=== PATIENT | female | born 1925 | race Caucasian/White ===

== ENCOUNTER 2016-02-26 06:47 | Emergency (ER) | payer OTHER ==
[~2016-02-26] VITALS: Ht 162.6 cm; Wt 65.8 kg
[~2016-02-26 06:47] MED LIST: CHOL20007 PO; GEMF600T3 PO; LETR2.5T PO; LISI2.5T47 PO; WARFARIN PO
[2016-02-26 08:17] LABS: Basophils # (auto) 0 uL; Basophils % (auto) 0.5 % (0.0-2.0); Eosinophils # (auto) 0.1 uL; Eosinophils % (auto) 2.7 % (0.0-7.0); Hematocrit 38.5 % (36.0-46.0); Hemoglobin 12.5 g/dL (12.2-16.2); Mean Corpuscular Hgb Conc. 32.6 g/dL (32.0-36.0); Mean Corpuscular Volume 98.2 fL (80.0-100.0); Mean Platelet Volume 9.9 fL (7.4-10.4); Monocytes # (auto) 0.6 uL; Monocytes % (auto) 10.5 % (0.0-12.0); Neutrophils # (auto) 3.7 uL; Neutrophils % (auto) 67.3 % (37.0-80.0); Platelet Count (auto) 232 10^3/uL (140-450); Red Cell Distribution Width 15.8 % (11.6-16.0); SUSPECT VIEW TRANSMISSION; White Blood Cell 5.5 10^3/uL (4.4-10.8)
[2016-02-26 08:38] LABS: Albumin 3.4 g/dL (3.4-5.0); Anion Gap 9 (5-15); Blood Urea Nitrogen 15 mg/dL (7-18); Calcium 8.9 mg/dL (8.5-10.1); Carbon Dioxide 28 mmol/L (21-32); Chloride 102 mmol/L (98-107); GFR African American 62 mL/min; GFR Non-African American 51 mL/min; Glucose 114 mg/dL (74-106); Magnesium 2.4 mg/dL (1.6-2.6); Potassium 3.7 mmol/L (3.5-5.1); Sodium 139 mmol/L (136-145)
[2016-02-26 08:46] LABS: Alkaline Phosphatase 114 U/L (45-117); Aspartate Aminotransferase 20 U/L (15-37); Bilirubin, Total 0.4 mg/dL (0.2-1.0); Salicylate < 1.7 mg/dL (2.8-20.0); Total Protein 7.1 g/dL (6.4-8.2)
[2016-02-26 08:49] LABS: Acetaminophen < 2.0 ug/mL (10-30)
[2016-02-26 09:01] LABS: Urine Bilirubin Negative (Negative); Urine Blood TRACE /uL (Negative); Urine Color Yellow (Yellow); Urine Glucose Normal (Normal); Urine Hyaline Cast FEW /lpf (0 - 2); Urine Ketone Negative (Negative); Urine Mucus FEW (None Seen); Urine Nitrite Negative (Negative); Urine RBC 2 /hpf (0 - 4); Urine Squamous Epithelial Cell FEW /hpf (<5); Urine Urobilinogen Normal (Negative); Urine pH 5.5 (5.0-8.0)
[2016-02-26] MEDS ORDERED: LORazepam 0.5 MG TAB PO ONE (12:00)
[2016-02-26 12:30] VITALS: BP 122/62
== END 2016-02-26 13:33 | disposition home or self-care (01) ==
LOC: ER 06:48
DX: F41.9 Anxiety disorder, unspecified (principal); J44.9 Chronic obstructive pulmonary disease, unspecified; E78.5 Hyperlipidemia, unspecified; I11.0 Hypertensive heart disease with heart failure; I50.40 Unspecified combined systolic (congestive) and diastolic (congestive) heart failure; Z85.9 Personal history of malignant neoplasm, unspecified
CPT/HCPCS: 36415; 71020; 80053; 80320; 80329; 81001; 83735; 84484; 85025; 93005; 99285; G0434

== ENCOUNTER 2016-02-29 09:32 | Emergency (ER) | payer OTHER ==
[~2016-02-29] VITALS: Ht 162.6 cm; Wt 52.2 kg
[2016-02-29 10:31] VITALS: BP 131/78
== END 2016-02-29 11:09 | disposition home or self-care (01) ==
LOC: ER 09:42
DX: F41.9 Anxiety disorder, unspecified (principal); F32.9 Major depressive disorder, single episode, unspecified; J44.9 Chronic obstructive pulmonary disease, unspecified; E78.5 Hyperlipidemia, unspecified; I11.0 Hypertensive heart disease with heart failure; I50.9 Heart failure, unspecified; Z79.899 Other long term (current) drug therapy; Z79.01 Long term (current) use of anticoagulants; Z88.6 Allergy status to analgesic agent; Z88.2 Allergy status to sulfonamides

== ENCOUNTER → 2016-03-05 | Outpatient (CLI) | payer OTHER ==
[2016-03-05 08:34] LABS: Albumin 3.7 g/dL (3.4-5.0); BUN/Creatinine Ratio 16.1; Bilirubin, Total 0.4 mg/dL (0.2-1.0); Calcium 9.5 mg/dL (8.5-10.1); Potassium 3.6 mmol/L (3.5-5.1)
[2016-03-05 08:41] LABS: Basophils # (auto) 0 uL; Basophils % (auto) 0.6 % (0.0-2.0); Eosinophils # (auto) 0.2 uL; Eosinophils % (auto) 2.4 % (0.0-7.0); Hematocrit 38.7 % (36.0-46.0); Hemoglobin 12.6 g/dL (12.2-16.2); Lymphocytes # (auto) 1.3 uL; Lymphocytes % (auto) 20.1 % (10.0-50.0); Mean Corpuscular Hemoglobin 31.7 pg (28.0-32.0); Mean Corpuscular Hgb Conc. 32.5 g/dL (32.0-36.0); Mean Corpuscular Volume 97.6 fL (80.0-100.0); Mean Platelet Volume 10.4 fL (7.4-10.4); Monocytes # (auto) 0.5 uL; Monocytes % (auto) 7.6 % (0.0-12.0); Neutrophils # (auto) 4.4 uL; Neutrophils % (auto) 69.3 % (37.0-80.0); Platelet Count (auto) 255 10^3/uL (140-450); Red Cell Distribution Width 15.4 % (11.6-16.0); White Blood Cell 6.4 10^3/uL (4.4-10.8)
== END | disposition home or self-care (01) ==
LOC: LAB 07:10
PROVIDERS: ATTEND Internal Medicine
DX: N18.3 Chronic kidney disease, stage 3 (moderate) (principal); E78.00 Pure hypercholesterolemia, unspecified; I10 Essential (primary) hypertension; Z00.00 Encounter for general adult medical examination without abnormal findings
CPT/HCPCS: 36415; 80053; 80061; 83615; 84443; 85025; 85049

== ENCOUNTER 2016-03-13 07:40 | Emergency (ER) | payer OTHER ==
[~2016-03-13] VITALS: Ht 162.6 cm; Wt 52.2 kg
[2016-03-13] MEDS ORDERED: SODIUM CHLORIDE 0.9% 1,000 ML IV ONE (08:20)
[2016-03-13] MEDS ORDERED: LORazepam 2MG/ML-1ML VIAL IV ONE (08:30)
[2016-03-13 08:46] LABS: Albumin 2.9 g/dL (3.4-5.0); BUN/Creatinine Ratio 19.8; Calcium 8.1 mg/dL (8.5-10.1); Potassium 3.2 mmol/L (3.5-5.1)
[2016-03-13 08:48] LABS: Bilirubin, Total 0.3 mg/dL (0.2-1.0)
[2016-03-13 09:03] LABS: Basophils # (auto) 0 uL; Basophils % (auto) 0.5 % (0.0-2.0); Eosinophils # (auto) 0 uL; Eosinophils % (auto) 0.4 % (0.0-7.0); Hematocrit 34.6 % (36.0-46.0); Hemoglobin 11.6 g/dL (12.2-16.2); Lymphocytes # (auto) 1.2 uL; Lymphocytes % (auto) 39.7 % (10.0-50.0); Mean Corpuscular Hgb Conc. 33.7 g/dL (32.0-36.0); Mean Corpuscular Volume 95.1 fL (80.0-100.0); Mean Platelet Volume 10.8 fL (7.4-10.4); Monocytes # (auto) 0.5 uL; Monocytes % (auto) 17.2 % (0.0-12.0); Neutrophils # (auto) 1.3 uL; Neutrophils % (auto) 42.2 % (37.0-80.0); Platelet Count (auto) 158 10^3/uL (140-450); Red Cell Distribution Width 14.9 % (11.6-16.0); SUSPECT VIEW TRANSMISSION
[2016-03-13 09:20] LABS: Platelet Estimate Adequate; RBC Morphology Normal
[2016-03-13 10:12] LABS: INR 1.61 (0.9-1.15); Prothrombin Time 16.6 sec (9.37-12.3)
[2016-03-13] MEDS ORDERED: POTASSIUM CHL 10% (20 MEQ/15ML) ORAL SOLN PO ONE (10:45)
[2016-03-13 11:24] LABS: Urine Bilirubin Negative (Negative); Urine Blood TRACE /uL (Negative); Urine Color Yellow (Yellow); Urine Glucose TRACE mg/dL (Normal); Urine Nitrite Negative (Negative); Urine RBC 2 /hpf (0 - 4); Urine Urobilinogen Normal (Negative); Urine pH 5.5 (5.0-8.0)
[2016-03-13 11:26] LABS: Urine Ketone 1+ (Negative)
[2016-03-13 11:50] VITALS: BP 136/62
== END 2016-03-13 12:25 | disposition home or self-care (01) ==
LOC: EDUNIT# 07:40 → ER 07:44
DX: F41.9 Anxiety disorder, unspecified (principal); E87.6 Hypokalemia; E44.1 Mild protein-calorie malnutrition; Z68.1 Body mass index [BMI] 19.9 or less, adult; J44.9 Chronic obstructive pulmonary disease, unspecified; I11.0 Hypertensive heart disease with heart failure; I50.9 Heart failure, unspecified; R51 Headache; E78.5 Hyperlipidemia, unspecified; Z86.711 Personal history of pulmonary embolism; Z87.440 Personal history of urinary (tract) infections; Z85.9 Personal history of malignant neoplasm, unspecified
CPT/HCPCS: 36415; 70450; 71010; 80053; 81001; 84484; 85025; 85049; 85610; 93005; 94761; 96360; 99285; J7030

== ENCOUNTER 2016-03-17 13:23 | Inpatient (IN) | payer OTHER ==
[~2016-03-17] VITALS: Ht 162.6 cm; Wt 53.2 kg
[2016-03-17] MEDS ORDERED: SODIUM CHLORIDE 0.9% 1,000 ML IVB ONE (13:53)
[2016-03-17 14:57] LABS: Hematocrit 37.7 % (36.0-46.0); Hemoglobin 12.2 g/dL (12.2-16.2); Mean Corpuscular Hemoglobin 31.1 pg (28.0-32.0); Mean Corpuscular Hgb Conc. 32.3 g/dL (32.0-36.0); Mean Corpuscular Volume 96.1 fL (80.0-100.0); Mean Platelet Volume 10.9 fL (7.4-10.4); Platelet Count (auto) 175 10^3/uL (140-450); Red Cell Distribution Width 15.3 % (11.6-16.0); SUSPECT VIEW TRANSMISSION
[2016-03-17 14:58] LABS: Albumin 3.3 g/dL (3.4-5.0); BUN/Creatinine Ratio 7.5; Calcium 8.7 mg/dL (8.5-10.1); Magnesium 2.1 mg/dL (1.6-2.6)
[2016-03-17 15:08] LABS: Partial Thromboplastin Time 43.2 sec (22.64-33.71)
[2016-03-17 15:09] LABS: Bilirubin, Total 0.5 mg/dL (0.2-1.0); Total Protein 6.3 g/dL (6.4-8.2)
[2016-03-17 15:16] LABS: Urine Bilirubin Negative (Negative); Urine Blood Negative /uL (Negative); Urine Color Yellow (Yellow); Urine Glucose Normal (Normal); Urine Ketone Negative (Negative); Urine Nitrite Negative (Negative); Urine RBC 1 /hpf (0 - 4); Urine Urobilinogen Normal (Negative)
[2016-03-17 15:28] LABS: Metamyelocytes % 0; Myelocytes % 0; Promyelocytes % 0; Reactive Lymphocytes 0
[2016-03-17] MEDS ORDERED: cefTRIAXone 1GM/50ML D5W 50 ML IV ONE (15:45)
[2016-03-17] MEDS ORDERED: POTASSIUM CHL 20 Meq TABLET PO ONE (15:45)
[2016-03-17 16:23] LABS: Prothrombin Time 50.2 sec (9.37-12.3)
[2016-03-17 16:25] LABS: INR 4.87 (0.9-1.15)
[2016-03-17 16:56] LABS: Anisocytosis Slight; Platelet Estimate Adequate
[2016-03-17 16:57] LABS: Ovalocytes FEW
[2016-03-17] MEDS: PHYTONADIONE (VIT K)10 MG/ML 1ML VIAL SUBCUT ONE ×2 (17:11→17:21)
[2016-03-17] MEDS ORDERED: ACETAMINOPHEN 500 MG TAB PO PRN (17:15)
[2016-03-17] MEDS ORDERED: ALBUTEROL SULF 2.5 MG/0.5ML(0.5%) NEB SOLN NEB PRN (17:15)
[2016-03-17] MEDS ORDERED: OSELTAMIVIR 75 MG CAP PO ONE (17:15)
[2016-03-17] MEDS ORDERED: LORazepam 0.5 MG TAB PO PRN (17:15)
[2016-03-17] MEDS ORDERED: TEMAZEPAM 15 MG CAP PO PRN (17:15)
[2016-03-17] MEDS ORDERED: SOD CHL 0.9%/ KCL 20MEQ 1,000 ML IV ONE (17:15)
[2016-03-17] MEDS ORDERED: OSELTAMIVIR 30 MG CAP PO ONE (17:15)
[2016-03-17] MEDS ORDERED: HYDROcodone-ACET 5/325MG TAB PO PRN (17:15)
[2016-03-17] MEDS ORDERED: MORPHINE SULF INJ 2 MG/ML SYRINGE 1ML IV PRN ×2 (17:15)
[2016-03-17] MEDS ORDERED: PROMETHAZINE HCL 25 MG/ML 1ML IV PRN (17:15)
[2016-03-17] MEDS ORDERED: LACTULOSE 20Gm/30ML SOLN PO PRN (17:15)
[2016-03-17] MEDS ORDERED: NITROGLYCERIN 0.4 MG SL TAB SL PRN (17:15)
[2016-03-17] MEDS ORDERED: CHOLECALCIFEROL (VITD3) 1,000 UNIT TAB PO SCH (17:30)
[2016-03-17] MEDS ORDERED: LEVOFLOXACIN 500MG 100 ML IV ONE (17:30)
[2016-03-17] MEDS ORDERED: PANTOPRAZOLE 40 MG TAB PO ONE (17:30)
[2016-03-17] MEDS ORDERED: GEMFIBROZIL 600 MG TAB PO ONE (17:30)
[2016-03-17] MEDS ORDERED: CHOLECALCIFEROL (VITD3) 1,000 UNIT TAB PO ONE (17:45)
[2016-03-17] MEDS: IPRATROPIUM BROM 0.5 MG/2.5ML INH SOL NEB SCH ×2 (17:46→23:52)
[2016-03-17] MEDS: ALBUTEROL SULF 2.5 MG/0.5ML(0.5%) NEB SOLN NEB SCH ×2 (17:46→23:52)
[2016-03-17] MEDS: LISINOPRIL 5 MG TAB PO SCH (18:40)
[2016-03-17 19:15] VITALS: BP 153/69
[2016-03-17] MEDS ORDERED: WARF2.5T PO (20:16)
[2016-03-17 21:35] VITALS: BP 153/69
[2016-03-17 22:00] VITALS: BP 153/69
[2016-03-17] MEDS ORDERED: OSELTAMIVIR 30 MG CAP PO SCH (22:00)
[2016-03-17] MEDS ORDERED: OSELTAMIVIR 75 MG CAP PO SCH (22:00)
[2016-03-18] VITALS (7 sets, daily range): BP systolic 120–155; BP diastolic 61–79
[2016-03-18 06:52] LABS: Partial Thromboplastin Time 45.3 sec (22.64-33.71)
[2016-03-18 06:55] LABS: Prothrombin Time 67.4 sec (9.37-12.3)
[2016-03-18 07:05] LABS: INR 6.54 (0.9-1.15)
[2016-03-18] MEDS: IPRATROPIUM BROM 0.5 MG/2.5ML INH SOL NEB SCH ×2 (07:44→19:12)
[2016-03-18] MEDS: ALBUTEROL SULF 2.5 MG/0.5ML(0.5%) NEB SOLN NEB SCH ×2 (07:45→19:12)
[2016-03-18] MEDS: CHOLECALCIFEROL (VITD3) 1,000 UNIT TAB PO SCH (09:42)
[2016-03-18] MEDS: GEMFIBROZIL 600 MG TAB PO SCH (09:42)
[2016-03-18] MEDS: PANTOPRAZOLE 40 MG TAB PO SCH (09:43)
[2016-03-18] MEDS: LISINOPRIL 5 MG TAB PO SCH (09:43)
[2016-03-18] MEDS: LEVOFLOXACIN 250MG 50 ML IV SCH (09:43)
[2016-03-18] MEDS: LETROZOLE 2.5MG PO SCH (09:44)
[2016-03-18] MEDS ORDERED: DONE5TAB28 PO (09:48)
[2016-03-18] MEDS ORDERED: ALPR0.5T PO (09:48)
[2016-03-18] MEDS ORDERED: GEMF600T3 PO (09:48)
[2016-03-18] MEDS ORDERED: ESCI10TA53 PO (09:48)
[2016-03-18] MEDS ORDERED: LETROZOLE PO SCH (10:00)
[2016-03-18] MEDS ORDERED: LEVOFLOXACIN 500MG 100 ML IV SCH (10:00)
[2016-03-18] MEDS ORDERED: PHYTONADIONE(VIT K) 5 MG TAB PO ONE (10:15)
[2016-03-18] MEDS ORDERED: PHYTONADIONE (VIT K)10 MG/ML 1ML VIAL IM ONE (10:15)
[2016-03-19] MEDS: ALBUTEROL SULF 2.5 MG/0.5ML(0.5%) NEB SOLN NEB SCH ×2 (00:34→06:40)
[2016-03-19] MEDS: IPRATROPIUM BROM 0.5 MG/2.5ML INH SOL NEB SCH ×2 (00:34→06:40)
[2016-03-19 05:00] VITALS: BP 151/75
[2016-03-19 06:37] LABS: Hematocrit 34.2 % (36.0-46.0); Mean Corpuscular Hgb Conc. 32.3 g/dL (32.0-36.0); Mean Platelet Volume 11.4 fL (7.4-10.4); Platelet Count (auto) 166 10^3/uL (140-450); Red Cell Distribution Width 15.4 % (11.6-16.0); SUSPECT VIEW TRANSMISSION; White Blood Cell 3.7 10^3/uL (4.4-10.8)
[2016-03-19 06:49] LABS: Partial Thromboplastin Time 30.6 sec (22.64-33.71)
[2016-03-19 06:50] LABS: Metamyelocytes % 0; Myelocytes % 0; Promyelocytes % 0; Reactive Lymphocytes 0
[2016-03-19 06:51] LABS: Potassium 3.4 mmol/L (3.5-5.1)
[2016-03-19 06:55] LABS: INR 1.73 (0.9-1.15); Prothrombin Time 17.8 sec (9.37-12.3)
[2016-03-19 06:59] LABS: BUN/Creatinine Ratio 9.2; Calcium 8.7 mg/dL (8.5-10.1)
[2016-03-19 07:26] LABS: Large Platelets FEW; Ovalocytes FEW; Platelet Estimate Adequa
[2016-03-19 09:51] VITALS: BP 153/72
[2016-03-19] MEDS: LEVOFLOXACIN 250MG 50 ML IV SCH (09:52)
[2016-03-19] MEDS: CHOLECALCIFEROL (VITD3) 1,000 UNIT TAB PO SCH (09:52)
[2016-03-19] MEDS: GEMFIBROZIL 600 MG TAB PO SCH (09:52)
[2016-03-19] MEDS: LETROZOLE 2.5MG PO SCH (09:52)
[2016-03-19] MEDS: LISINOPRIL 5 MG TAB PO SCH (09:53)
[2016-03-19] MEDS: PANTOPRAZOLE 40 MG TAB PO SCH (09:53)
[2016-03-19] MEDS ORDERED: POTASSIUM CHL 20 Meq TABLET PO ONE (10:00)
[2016-03-19 10:31] VITALS: BP 153/72
== END 2016-03-19 11:15 | disposition home or self-care (01) | DRG 194 ==
LOC: EDBD 13:23 → ER 13:27 → TELE 13:28 → TELE-WESTW 19:35
PROVIDERS: ADMIT Internal Medicine; ATTEND Internal Medicine
DX: J18.9 Pneumonia, unspecified organism (principal); E46 Unspecified protein-calorie malnutrition; J44.0 Chronic obstructive pulmonary disease with (acute) lower respiratory infection; K72.90 Hepatic failure, unspecified without coma; J44.9 Chronic obstructive pulmonary disease, unspecified; D72.819 Decreased white blood cell count, unspecified; I11.0 Hypertensive heart disease with heart failure; T45.515A Adverse effect of anticoagulants, initial encounter; E87.6 Hypokalemia; I50.9 Heart failure, unspecified; E78.5 Hyperlipidemia, unspecified; Z86.711 Personal history of pulmonary embolism; Z86.718 Personal history of other venous thrombosis and embolism; Z87.440 Personal history of urinary (tract) infections; Z85.3 Personal history of malignant neoplasm of breast; Z90.89 Acquired absence of other organs; Z90.49 Acquired absence of other specified parts of digestive tract; Z90.710 Acquired absence of both cervix and uterus; Z90.11 Acquired absence of right breast and nipple; Z83.3 Family history of diabetes mellitus; Z80.9 Family history of malignant neoplasm, unspecified; Z80.1 Family history of malignant neoplasm of trachea, bronchus and lung; Z82.5 Family history of asthma and other chronic lower respiratory diseases; Z82.49 Family history of ischemic heart disease and other diseases of the circulatory system; Z88.6 Allergy status to analgesic agent; Z88.5 Allergy status to narcotic agent; Z88.2 Allergy status to sulfonamides; Z88.7 Allergy status to serum and vaccine; Z79.899 Other long term (current) drug therapy; Z68.20 Body mass index [BMI] 20.0-20.9, adult; Z90.10 Acquired absence of unspecified breast and nipple; Z86.2 Personal history of diseases of the blood and blood-forming organs and certain disorders involving the immune mechanism; Z88.8 Allergy status to other drugs, medicaments and biological substances; Y92.89 Other specified places as the place of occurrence of the external cause
CPT/HCPCS: 36415; 71010; 80048; 80053; 81001; 82270; 83605; 83735; 84484; 85007; 85027; 85610; 85730; 87040; 87081; 87086; 87400; 93005; 94640; 94761; 96361; 96365; G9035; J0696; J1956; J3430

== ENCOUNTER → 2016-03-21 | Outpatient (CLI) | payer OTHER ==
[~2016-03-21] MED LIST changes: +ALPR0.5T PO; -CHOL20007 PO; +DONE5TAB28 PO; +ESCI10TA53 PO; +WARF2.5T PO; -WARFARIN PO
[2016-03-21 11:17] LABS: Basophils # (auto) 0 uL; Basophils % (auto) 0.5 % (0.0-2.0); Eosinophils # (auto) 0 uL; Eosinophils % (auto) 0.5 % (0.0-7.0); Hematocrit 37.6 % (36.0-46.0); Hemoglobin 11.8 g/dL (12.2-16.2); Lymphocytes # (auto) 0.9 uL; Lymphocytes % (auto) 14.8 % (10.0-50.0); Mean Corpuscular Hemoglobin 30.8 pg (28.0-32.0); Mean Corpuscular Hgb Conc. 31.4 g/dL (32.0-36.0); Mean Corpuscular Volume 98.1 fL (80.0-100.0); Mean Platelet Volume 10.9 fL (7.4-10.4); Monocytes # (auto) 0.8 uL; Monocytes % (auto) 13.1 % (0.0-12.0); Neutrophils # (auto) 4.5 uL; Neutrophils % (auto) 71.1 % (37.0-80.0); Platelet Count (auto) 226 10^3/uL (140-450); Red Cell Distribution Width 15.8 % (11.6-16.0); SUSPECT VIEW TRANSMISSION; White Blood Cell 6.3 10^3/uL (4.4-10.8)
[2016-03-21 11:44] LABS: Vitamin B12 562 pg/mL (211-911)
[2016-03-21 12:27] LABS: Temperature: 21.7 C (20.0-25.0)
[2016-03-21 14:13] LABS: Potassium 3.8 mmol/L (3.5-5.1)
[2016-03-21 14:36] LABS: Albumin 3.4 g/dL (3.4-5.0); BUN/Creatinine Ratio 8.1
[2016-03-21 14:46] LABS: Bilirubin, Total 1.1 mg/dL (0.2-1.0); Total Protein 6.6 g/dL (6.4-8.2)
[2016-03-21 15:44] LABS: Large Platelets FEW; Platelet Estimate Adequate
[2016-03-21 15:45] LABS: Ovalocytes FEW
== END | disposition home or self-care (01) ==
LOC: LAB 10:23
PROVIDERS: ATTEND Internal Medicine
DX: E87.6 Hypokalemia (principal); F03.90 Unspecified dementia, unspecified severity, without behavioral disturbance, psychotic disturbance, mood disturbance, and anxiety
CPT/HCPCS: 36415; 80053; 82607; 82746; 83540; 85025

== ENCOUNTER → 2016-05-04 | Outpatient (CLI) | payer OTHER | END | disposition home or self-care (01) | LOC: LAB 09:06 | PROVIDERS: ATTEND Internal Medicine | DX: R93.5 Abnormal findings on diagnostic imaging of other abdominal regions, including retroperitoneum (principal); C50.119 Malignant neoplasm of central portion of unspecified female breast | CPT/HCPCS: 36415; 82565; 84520 ==

== ENCOUNTER → 2016-06-08 | Outpatient (CLI) | payer OTHER ==
[2016-06-08 13:13] LABS: Albumin 3.7 g/dL (3.4-5.0); Bilirubin, Total 0.8 mg/dL (0.2-1.0); Calcium 9.5 mg/dL (8.5-10.1); Potassium 3.7 mmol/L (3.5-5.1); Total Protein 7.1 g/dL (6.4-8.2)
[2016-06-08 13:25] LABS: Basophils # (auto) 0 uL; Basophils % (auto) 0.6 % (0.0-2.0); Eosinophils # (auto) 0.1 uL; Eosinophils % (auto) 0.6 % (0.0-7.0); Hematocrit 37.9 % (36.0-46.0); Hemoglobin 12.4 g/dL (12.2-16.2); Lymphocytes # (auto) 1.4 uL; Lymphocytes % (auto) 16.2 % (10.0-50.0); Mean Corpuscular Hemoglobin 32.9 pg (28.0-32.0); Mean Corpuscular Hgb Conc. 32.8 g/dL (32.0-36.0); Mean Corpuscular Volume 100.2 fL (80.0-100.0); Mean Platelet Volume 10.8 fL (7.4-10.4); Monocytes # (auto) 0.7 uL; Monocytes % (auto) 8.2 % (0.0-12.0); Neutrophils # (auto) 6.3 uL; Neutrophils % (auto) 74.4 % (37.0-80.0); Platelet Count (auto) 225 10^3/uL (140-450); SUSPECT VIEW TRANSMISSION; White Blood Cell 8.4 10^3/uL (4.4-10.8)
[2016-06-08 15:01] LABS: Macrocytosis Slight; Ovalocytes FEW; Platelet Estimate Adequate
== END | disposition home or self-care (01) ==
LOC: LAB 12:26
PROVIDERS: ATTEND Internal Medicine
DX: R35.1 Nocturia (principal); I10 Essential (primary) hypertension
CPT/HCPCS: 36415; 80053; 85025

== ENCOUNTER → 2016-07-10 | Outpatient (CLI) | payer OTHER | END | disposition home or self-care (01) | LOC: LAB 10:02 | PROVIDERS: ATTEND Internal Medicine | DX: R35.1 Nocturia (principal); N39.0 Urinary tract infection, site not specified | CPT/HCPCS: 87086 ==

== ENCOUNTER → 2016-08-16 | Outpatient (CLI) | payer OTHER ==
[2016-08-16 10:28] LABS: Basophils # (auto) 0 uL; Basophils % (auto) 0.5 % (0.0-2.0); CONDITION Y; Eosinophils # (auto) 0.1 uL; Eosinophils % (auto) 2.3 % (0.0-7.0); Hematocrit 36.9 % (36.0-46.0); Hemoglobin 12.4 g/dL (12.2-16.2); Lymphocytes # (auto) 1.4 uL; Lymphocytes % (auto) 23.6 % (10.0-50.0); Mean Corpuscular Hemoglobin 33.2 pg (28.0-32.0); Mean Corpuscular Hgb Conc. 33.5 g/dL (32.0-36.0); Mean Corpuscular Volume 98.8 fL (80.0-100.0); Mean Platelet Volume 11.3 fL (7.4-10.4); Monocytes # (auto) 0.5 uL; Monocytes % (auto) 8.9 % (0.0-12.0); Neutrophils # (auto) 3.8 uL; Neutrophils % (auto) 64.7 % (37.0-80.0); Platelet Count (auto) 208 10^3/uL (140-450); Red Cell Distribution Width 14.9 % (11.6-16.0); SUSPECT SEE PRINTOUT; White Blood Cell 5.9 10^3/uL (4.4-10.8)
[2016-08-16 11:03] LABS: Albumin 3.6 g/dL (3.4-5.0); BUN/Creatinine Ratio 22.5; Bilirubin, Total 0.7 mg/dL (0.2-1.0); Calcium 8.7 mg/dL (8.5-10.1); Potassium 3.7 mmol/L (3.5-5.1); Total Protein 6.4 g/dL (6.4-8.2)
== END | disposition home or self-care (01) ==
LOC: LAB 08:37
PROVIDERS: ATTEND Internal Medicine
DX: C50.911 Malignant neoplasm of unspecified site of right female breast (principal)
CPT/HCPCS: 36415; 80053; 83615; 85025

== ENCOUNTER 2016-10-01 14:47 | Inpatient (IN) | payer OTHER ==
[~2016-10-01] VITALS: Ht 162.6 cm; Wt 53.3 kg
[2016-10-01] MEDS ORDERED: SODIUM CHLORIDE 0.9% 1,000 ML IV ONE (15:30)
[2016-10-01] MEDS ORDERED: MORPHINE SULFATE 4 MG/ML SYRG IV ONE (15:30)
[2016-10-01] MEDS ORDERED: ONDANSETRON HCL 4 MG/2 ML VIAL IV ONE (15:30)
[2016-10-01 15:47] LABS: Basophils # (auto) 0 uL; Basophils % (auto) 0.5 % (0.0-2.0); CONDITION Y; Eosinophils # (auto) 0 uL; Eosinophils % (auto) 0.5 % (0.0-7.0); Hematocrit 34.8 % (36.0-46.0); Hemoglobin 11.5 g/dL (12.2-16.2); Lymphocytes # (auto) 0.9 uL; Mean Corpuscular Hgb Conc. 33.1 g/dL (32.0-36.0); Mean Corpuscular Volume 99.8 fL (80.0-100.0); Mean Platelet Volume 10.4 fL (7.4-10.4); Monocytes # (auto) 0.5 uL; Monocytes % (auto) 5.9 % (0.0-12.0); Neutrophils # (auto) 6.6 uL; Neutrophils % (auto) 82.1 % (37.0-80.0); Platelet Count (auto) 197 10^3/uL (140-450); Red Cell Distribution Width 15.6 % (11.6-16.0); White Blood Cell 8.1 10^3/uL (4.4-10.8)
[2016-10-01 16:10] LABS: Albumin 3.3 g/dL (3.4-5.0); Anion Gap 6 (5-15); Aspartate Aminotransferase 14 U/L (15-37); BUN/Creatinine Ratio 18.1; Blood Urea Nitrogen 19 mg/dL (7-18); Calcium 8.6 mg/dL (8.5-10.1); Carbon Dioxide 29 mmol/L (21-32); Chloride 106 mmol/L (98-107); GFR African American 63 mL/min; GFR Non-African American 52 mL/min; Glucose 121 mg/dL (74-106); Potassium 3.7 mmol/L (3.5-5.1); Sodium 141 mmol/L (136-145)
[2016-10-01 16:15] LABS: Alkaline Phosphatase 54 U/L (45-117); Bilirubin, Total 0.6 mg/dL (0.2-1.0)
[2016-10-01 16:34] LABS: INR 2.51 (0.9-1.15); Partial Thromboplastin Time 32.7 sec (22.64-33.71); Prothrombin Time 27.6 sec (9.37-12.3)
[2016-10-01] MEDS ORDERED: PHYTONADIONE (VIT K)10 MG/ML 1ML VIAL SUBCUT ONE (17:00)
[2016-10-01] MEDS ORDERED: TEMAZEPAM 15 MG CAP PO PRN (17:00)
[2016-10-01] MEDS ORDERED: ALPRAZolam 0.5 MG TAB PO PRN (17:00)
[2016-10-01] MEDS ORDERED: cloNIDine HCL 0.1 MG TAB PO PRN (17:00)
[2016-10-01] MEDS ORDERED: NITROGLYCERIN 0.4 MG SL TAB SL PRN (17:00)
[2016-10-01] MEDS ORDERED: MORPHINE SULF INJ 2 MG/ML SYRINGE 1ML IV PRN (17:00)
[2016-10-01] MEDS: BOOST PLUS 8 ounce PO SCH (18:00)
[2016-10-01 18:15] LABS: Urine Bilirubin Negative (Negative); Urine Color Yellow (Yellow); Urine Glucose Normal (Normal); Urine Ketone Negative (Negative); Urine RBC 27 /hpf (0 - 4); Urine Squamous Epithelial Cell FEW /hpf (<5); Urine Urobilinogen Normal (Negative)
[2016-10-01] MEDS ORDERED: LISINOPRIL 5 MG TAB PO ONE (18:15)
[2016-10-01 18:22] LABS: Urine Blood 1+ /uL (Negative); Urine Nitrite POSITIVE (Negative)
[2016-10-01] MEDS: ZINC SULFATE 220 MG CAP PO SCH (18:24)
[2016-10-01] MEDS: MULTIPLE VITAMIN TAB PO SCH (18:25)
[2016-10-01 20:25] VITALS: BP 145/55
[2016-10-01] MEDS: GEMFIBROZIL 600 MG TAB PO SCH ×2 (21:19→22:00)
[2016-10-01] MEDS: ASCORBIC ACID 500 MG TAB PO SCH ×2 (21:19→22:00)
[2016-10-01] MEDS: DONEPEZIL HYDROCHLORIDE 5 MG TAB PO SCH ×2 (21:19→22:00)
[2016-10-01] MEDS: MORPHINE SULF INJ 2 MG/ML SYRINGE 1ML IV PRN (21:20)
[2016-10-01] MEDS: SODIUM CHLOR 0.9% PF (SALINE LOCK) 10ML VIAL IV SCH (21:30)
[2016-10-01 22:00] VITALS: BP 149/65
[2016-10-01] MEDS: FAMOTIDINE 20 MG TAB PO SCH (22:00)
[2016-10-01 23:36] VITALS: BP 145/55
[2016-10-02 05:00] VITALS: BP 106/62
[2016-10-02] MEDS: SODIUM CHLOR 0.9% PF (SALINE LOCK) 10ML VIAL IV SCH ×3 (05:50→21:20)
[2016-10-02 05:58] LABS: Basophils # (auto) 0 uL; Basophils % (auto) 0.3 % (0.0-2.0); CONDITION Y; Eosinophils # (auto) 0.1 uL; Eosinophils % (auto) 0.7 % (0.0-7.0); Hematocrit 35.2 % (36.0-46.0); Hemoglobin 11.6 g/dL (12.2-16.2); Lymphocytes # (auto) 0.8 uL; Lymphocytes % (auto) 9.3 % (10.0-50.0); Mean Corpuscular Hemoglobin 33.3 pg (28.0-32.0); Mean Corpuscular Hgb Conc. 33.1 g/dL (32.0-36.0); Mean Corpuscular Volume 100.6 fL (80.0-100.0); Mean Platelet Volume 10.8 fL (7.4-10.4); Monocytes # (auto) 0.7 uL; Monocytes % (auto) 8.2 % (0.0-12.0); Neutrophils # (auto) 7.4 uL; Neutrophils % (auto) 81.5 % (37.0-80.0); Platelet Count (auto) 177 10^3/uL (140-450); Red Cell Distribution Width 15.6 % (11.6-16.0); SUSPECT SEE PRINTOUT; White Blood Cell 9.1 10^3/uL (4.4-10.8)
[2016-10-02 06:03] LABS: INR 2.26 (0.9-1.15); Prothrombin Time 24.8 sec (9.37-12.3)
[2016-10-02 06:07] LABS: Potassium 4.5 mmol/L (3.5-5.1)
[2016-10-02 06:12] LABS: BUN/Creatinine Ratio 19.5; Calcium 8.5 mg/dL (8.5-10.1); Total Protein 5.8 g/dL (6.4-8.2)
[2016-10-02] MEDS: BOOST PLUS 8 ounce PO SCH ×3 (08:00→18:09)
[2016-10-02 09:07] VITALS: BP 112/50
[2016-10-02] MEDS: GEMFIBROZIL 600 MG TAB PO SCH ×2 (09:29→21:21)
[2016-10-02] MEDS: CITALOPRAM HYDROBR 20 MG TAB PO SCH (09:29)
[2016-10-02] MEDS: CHOLECALCIFEROL (VITD3) 1,000 UNIT TAB PO SCH (09:30)
[2016-10-02] MEDS: ASCORBIC ACID 500 MG TAB PO SCH ×2 (09:30→21:21)
[2016-10-02] MEDS: MULTIPLE VITAMIN TAB PO SCH (09:30)
[2016-10-02] MEDS: FAMOTIDINE 20 MG TAB PO SCH (09:31)
[2016-10-02] MEDS: MORPHINE SULF INJ 2 MG/ML SYRINGE 1ML IV PRN (09:31)
[2016-10-02] MEDS: ZINC SULFATE 220 MG CAP PO SCH (09:31)
[2016-10-02] MEDS: LISINOPRIL 5 MG TAB PO SCH (09:33)
[2016-10-02] MEDS: HYDROcodone-ACET 5/325MG TAB PO PRN ×2 (11:11→18:16)
[2016-10-02 13:00] VITALS: BP 113/63
[2016-10-02] MEDS ORDERED: CLINDAMYCIN 600MG IV 50 ML IV ONE (15:45)
[2016-10-02 17:00] VITALS: BP 95/43
[2016-10-02 20:00] VITALS: BP 107/55
[2016-10-02] MEDS: DONEPEZIL HYDROCHLORIDE 5 MG TAB PO SCH (21:21)
[2016-10-02 22:04] VITALS: BP 107/45
[2016-10-03 05:24] VITALS: BP 119/44
[2016-10-03] MEDS: SODIUM CHLOR 0.9% PF (SALINE LOCK) 10ML VIAL IV SCH ×3 (06:16→21:55)
[2016-10-03] MEDS: BOOST PLUS 8 ounce PO SCH ×3 (08:00→18:33)
[2016-10-03 08:48] VITALS: BP 97/42
[2016-10-03] MEDS: GEMFIBROZIL 600 MG TAB PO SCH ×2 (09:57→21:56)
[2016-10-03] MEDS: ASCORBIC ACID 500 MG TAB PO SCH ×2 (09:57→21:58)
[2016-10-03] MEDS: CHOLECALCIFEROL (VITD3) 1,000 UNIT TAB PO SCH (09:57)
[2016-10-03] MEDS: CITALOPRAM HYDROBR 20 MG TAB PO SCH (09:57)
[2016-10-03] MEDS: ZINC SULFATE 220 MG CAP PO SCH (09:58)
[2016-10-03] MEDS: FAMOTIDINE 20 MG TAB PO SCH (09:58)
[2016-10-03] MEDS: MULTIPLE VITAMIN TAB PO SCH (09:58)
[2016-10-03] MEDS: LISINOPRIL 5 MG TAB PO SCH (10:00)
[2016-10-03 13:06] VITALS: BP_SYST 100; BP_SYST 125; BP_DIAS 43; BP_DIAS 46
[2016-10-03 16:55] VITALS: BP 139/48
[2016-10-03] MEDS ORDERED: PHYTONADIONE (VIT K)10 MG/ML 1ML VIAL SUBCUT ONE (17:00)
[2016-10-03 19:15] LABS: INR 1.02 (0.9-1.15); Prothrombin Time 11.1 sec (9.37-12.3)
[2016-10-03] MEDS: MORPHINE SULF INJ 2 MG/ML SYRINGE 1ML IV PRN (21:57)
[2016-10-03] MEDS: DONEPEZIL HYDROCHLORIDE 5 MG TAB PO SCH (21:57)
[2016-10-03 22:00] VITALS: BP 131/57
[2016-10-04 05:00] VITALS: BP 147/71
[2016-10-04] MEDS: SODIUM CHLOR 0.9% PF (SALINE LOCK) 10ML VIAL IV SCH ×3 (05:00→21:35)
[2016-10-04 05:55] LABS: Basophils # (auto) 0 uL; Basophils % (auto) 0.1 % (0.0-2.0); CONDITION Y; Eosinophils # (auto) 0.1 uL; Eosinophils % (auto) 0.6 % (0.0-7.0); Hematocrit 34.6 % (36.0-46.0); Hemoglobin 11.5 g/dL (12.2-16.2); Lymphocytes # (auto) 0.9 uL; Lymphocytes % (auto) 8.5 % (10.0-50.0); Mean Corpuscular Hemoglobin 33.3 pg (28.0-32.0); Mean Corpuscular Hgb Conc. 33.3 g/dL (32.0-36.0); Mean Platelet Volume 10.7 fL (7.4-10.4); Monocytes # (auto) 0.9 uL; Monocytes % (auto) 8.8 % (0.0-12.0); Neutrophils # (auto) 8.5 uL; Platelet Count (auto) 143 10^3/uL (140-450); Red Cell Distribution Width 14.9 % (11.6-16.0); SUSPECT SEE PRINTOUT; White Blood Cell 10.3 10^3/uL (4.4-10.8)
[2016-10-04 06:06] LABS: BUN/Creatinine Ratio 18.4; Calcium 8.3 mg/dL (8.5-10.1); Potassium 4.2 mmol/L (3.5-5.1)
[2016-10-04 06:07] LABS: INR 0.93 (0.9-1.15); Partial Thromboplastin Time 30.8 sec (22.64-33.71); Prothrombin Time 10.1 sec (9.37-12.3)
[2016-10-04] MEDS: BOOST PLUS 8 ounce PO SCH ×3 (08:00→18:00)
[2016-10-04] MEDS ORDERED: LIDOCAINE 1% HCL (LOCAL ANESTH.) INJ 20ML MDV ONE (08:22)
[2016-10-04] MEDS ORDERED: TETRACAINE 1% INJ 2 ML VIAL IJ ONE (08:22)
[2016-10-04] MEDS ORDERED: SUCCINYLCHOLINE CHLORIDE 20 MG/ML 10ML VIAL IV ONE (08:22)
[2016-10-04] MEDS ORDERED: MIDAZOLAM HCL 1MG/1ML-2 ML VIAL ONE (08:25)
[2016-10-04] MEDS ORDERED: SODIUM CHLORIDE LOCK 20 ML ONE (08:25)
[2016-10-04] MEDS ORDERED: fentaNYL CITRATE 100 MCG/2 ML VL ONE (08:25)
[2016-10-04] MEDS ORDERED: PROPOFOL 10 MG/ML 20 ML IV ONE (08:25)
[2016-10-04] MEDS ORDERED: ONDANSETRON HCL 4 MG/2 ML VIAL ONE (08:25)
[2016-10-04] MEDS ORDERED: MORPHINE SULF(PF) 0.5MG/ML 10ML VIAL ONE (08:25)
[2016-10-04] MEDS ORDERED: ePHEDrine SULFATE 50 MG/ML AMP ONE (08:25)
[2016-10-04] MEDS ORDERED: ceFAZolin 1GM/50ML D5W 50 ML IV ONE (08:53)
[2016-10-04 09:00] VITALS: BP 123/59
[2016-10-04] MEDS: FAMOTIDINE 20 MG TAB PO SCH (10:00)
[2016-10-04] MEDS: ZINC SULFATE 220 MG CAP PO SCH (10:00)
[2016-10-04] MEDS: CHOLECALCIFEROL (VITD3) 1,000 UNIT TAB PO SCH (10:00)
[2016-10-04] MEDS: ASCORBIC ACID 500 MG TAB PO SCH ×2 (10:00→21:35)
[2016-10-04] MEDS: MULTIPLE VITAMIN TAB PO SCH (10:00)
[2016-10-04] MEDS: LISINOPRIL 5 MG TAB PO SCH (10:00)
[2016-10-04] MEDS: CITALOPRAM HYDROBR 20 MG TAB PO SCH (10:00)
[2016-10-04] MEDS: GEMFIBROZIL 600 MG TAB PO SCH ×2 (10:00→21:34)
[2016-10-04] MEDS ORDERED: BUPIVACAINE 0.25% INJ 50ML VIAL ONE (10:07)
[2016-10-04] MEDS ORDERED: BUPIVACAINE W/ EPINEPH 0.25% INJ 50ML MDV ONE (10:07)
[2016-10-04] MEDS ORDERED: CLINDAMYCIN 600MG IV 50 ML IV ONE (10:10)
[2016-10-04] MEDS ORDERED: KETOROLAC TROMETH 30 MG/ML 1ML VIAL IV ONE (13:30)
[2016-10-04] MEDS ORDERED: HYDROmorphone HCL 2 MG/ML VL IV PRN (13:30)
[2016-10-04] MEDS ORDERED: METOCLOPRAMIDE HCL 5MG/ml INJ 2ml VIAL IV ONE (13:30)
[2016-10-04] MEDS ORDERED: NALOXONE HCL 0.4 MG/ML VIAL IV PRN (13:30)
[2016-10-04] MEDS ORDERED: ESCI5TAB14 PO (16:32)
[2016-10-04] MEDS ORDERED: WARF4TAB33 (16:32)
[2016-10-04] MEDS ORDERED: LISI-275 PO (16:32)
[2016-10-04 17:00] VITALS: BP 110/61
[2016-10-04] MEDS ORDERED: hydrALAZINE HCL 20 MG/ML VL IV PRN (18:45)
[2016-10-04] MEDS: DONEPEZIL HYDROCHLORIDE 5 MG TAB PO SCH (21:34)
[2016-10-04 22:00] VITALS: BP 115/41
[2016-10-04 22:30] VITALS: BP 122/46
[2016-10-05] VITALS (7 sets, daily range): BP systolic 101–117; BP diastolic 43–49
[2016-10-05] MEDS: SODIUM CHLOR 0.9% PF (SALINE LOCK) 10ML VIAL IV SCH ×3 (07:03→23:00)
[2016-10-05] MEDS: BOOST PLUS 8 ounce PO SCH ×3 (08:12→18:12)
[2016-10-05] MEDS: CHOLECALCIFEROL (VITD3) 1,000 UNIT TAB PO SCH (09:40)
[2016-10-05] MEDS: FAMOTIDINE 20 MG TAB PO SCH (09:41)
[2016-10-05] MEDS: ASCORBIC ACID 500 MG TAB PO SCH ×2 (09:41→23:00)
[2016-10-05] MEDS: ACETAMINOPHEN 325 MG TAB PO PRN ×2 (09:41→18:15)
[2016-10-05] MEDS: ZINC SULFATE 220 MG CAP PO SCH (09:41)
[2016-10-05] MEDS: MULTIPLE VITAMIN TAB PO SCH (09:42)
[2016-10-05] MEDS: CITALOPRAM HYDROBR 20 MG TAB PO SCH (09:42)
[2016-10-05] MEDS: GEMFIBROZIL 600 MG TAB PO SCH ×2 (09:42→23:00)
[2016-10-05] MEDS: LISINOPRIL 5 MG TAB PO SCH (09:42)
[2016-10-05 12:35] LABS: Basophils # (auto) 0 uL; Basophils % (auto) 0.1 % (0.0-2.0); CONDITION Y; Eosinophils # (auto) 0 uL; Hematocrit 34.6 % (36.0-46.0); Hemoglobin 11.4 g/dL (12.2-16.2); Lymphocytes # (auto) 0.5 uL; Lymphocytes % (auto) 3.7 % (10.0-50.0); Mean Platelet Volume 11.4 fL (7.4-10.4); Monocytes # (auto) 1.5 uL; Monocytes % (auto) 11.9 % (0.0-12.0); Neutrophils # (auto) 10.8 uL; Neutrophils % (auto) 84.3 % (37.0-80.0); Platelet Count (auto) 164 10^3/uL (140-450); Red Cell Distribution Width 15.6 % (11.6-16.0); SUSPECT SEE PRINTOUT; White Blood Cell 12.8 10^3/uL (4.4-10.8)
[2016-10-05 13:08] LABS: BUN/Creatinine Ratio 21.7; Calcium 9.3 mg/dL (8.5-10.1); Potassium 4.5 mmol/L (3.5-5.1)
[2016-10-05] MEDS: MORPHINE SULF INJ 2 MG/ML SYRINGE 1ML IV PRN (14:10)
[2016-10-05 18:31] LABS: INR 0.86 (0.9-1.15); Partial Thromboplastin Time 26.9 sec (22.64-33.71); Prothrombin Time 9.4 sec (9.37-12.3)
[2016-10-05] MEDS ORDERED: WARFARIN SODIUM 5 MG TAB PO ONE (19:45)
[2016-10-05] MEDS: DONEPEZIL HYDROCHLORIDE 5 MG TAB PO SCH (23:00)
[2016-10-05] MEDS: HYDROcodone-ACET 5/325MG TAB PO PRN (23:00)
[2016-10-06 05:00] VITALS: BP 119/50
[2016-10-06 06:08] LABS: INR 0.85 (0.9-1.15); Partial Thromboplastin Time 27.3 sec (22.64-33.71); Prothrombin Time 9.3 sec (9.37-12.3)
[2016-10-06] MEDS: SODIUM CHLOR 0.9% PF (SALINE LOCK) 10ML VIAL IV SCH ×2 (07:43→17:03)
[2016-10-06 08:00] VITALS: BP 131/62
[2016-10-06] MEDS: BOOST PLUS 8 ounce PO SCH ×3 (08:33→18:14)
[2016-10-06] MEDS: ASCORBIC ACID 500 MG TAB PO SCH ×2 (09:39→22:39)
[2016-10-06] MEDS: CHOLECALCIFEROL (VITD3) 1,000 UNIT TAB PO SCH (09:39)
[2016-10-06] MEDS: ZINC SULFATE 220 MG CAP PO SCH (09:40)
[2016-10-06] MEDS: FAMOTIDINE 20 MG TAB PO SCH (09:40)
[2016-10-06] MEDS: CITALOPRAM HYDROBR 20 MG TAB PO SCH (09:40)
[2016-10-06] MEDS: MULTIPLE VITAMIN TAB PO SCH (09:40)
[2016-10-06] MEDS: GEMFIBROZIL 600 MG TAB PO SCH ×2 (09:40→22:40)
[2016-10-06] MEDS: LISINOPRIL 5 MG TAB PO SCH (09:41)
[2016-10-06 12:00] VITALS: BP 113/62
[2016-10-06] MEDS: MORPHINE SULF INJ 2 MG/ML SYRINGE 1ML IV PRN (12:29)
[2016-10-06] MEDS: ONDANSETRON HCL 4 MG/2 ML VIAL IV PRN (13:10)
[2016-10-06 16:46] VITALS: BP 105/48
[2016-10-06] MEDS ORDERED: WARFARIN SODIUM 5 MG TAB PO ONE (17:00)
[2016-10-06] MEDS: DONEPEZIL HYDROCHLORIDE 5 MG TAB PO SCH (22:39)
[2016-10-06 23:14] VITALS: BP 94/46
[2016-10-07] VITALS (7 sets, daily range): BP systolic 106–127; BP diastolic 50–97
[2016-10-07] MEDS: ACETAMINOPHEN 325 MG TAB PO PRN (01:56)
[2016-10-07] MEDS: SODIUM CHLOR 0.9% PF (SALINE LOCK) 10ML VIAL IV SCH ×4 (01:56→21:41)
[2016-10-07 06:41] LABS: Potassium 4.5 mmol/L (3.5-5.1)
[2016-10-07 06:43] LABS: INR 1.12 (0.9-1.15); Partial Thromboplastin Time 31.1 sec (22.64-33.71); Prothrombin Time 12.2 sec (9.37-12.3)
[2016-10-07 06:52] LABS: BUN/Creatinine Ratio 23.3; Calcium 8.9 mg/dL (8.5-10.1)
[2016-10-07 06:53] LABS: Basophils # (auto) 0 uL; CONDITION Y; Eosinophils # (auto) 0.2 uL; Mean Corpuscular Hemoglobin 33.5 pg (28.0-32.0); Mean Corpuscular Hgb Conc. 34.4 g/dL (32.0-36.0); Monocytes # (auto) 1.2 uL; SUSPECT SEE PRINTOUT
[2016-10-07 07:12] LABS: Basophils % (auto) 0.3 % (0.0-2.0); Eosinophils % (auto) 1.8 % (0.0-7.0); Hematocrit 30.7 % (36.0-46.0); Hemoglobin 10.6 g/dL (12.2-16.2); Lymphocytes # (auto) 1.5 uL; Mean Corpuscular Volume 97.3 fL (80.0-100.0); Mean Platelet Volume 11.3 fL (7.4-10.4); Monocytes % (auto) 11.8 % (0.0-12.0); Neutrophils # (auto) 7.6 uL; Neutrophils % (auto) 72.1 % (37.0-80.0); Platelet Count (auto) 192 10^3/uL (140-450); Red Cell Distribution Width 14.9 % (11.6-16.0); White Blood Cell 10.5 10^3/uL (4.4-10.8)
[2016-10-07] MEDS: BOOST PLUS 8 ounce PO SCH ×3 (08:17→18:09)
[2016-10-07] MEDS: MULTIPLE VITAMIN TAB PO SCH (10:02)
[2016-10-07] MEDS: CITALOPRAM HYDROBR 20 MG TAB PO SCH (10:02)
[2016-10-07] MEDS: ZINC SULFATE 220 MG CAP PO SCH (10:04)
[2016-10-07] MEDS: LISINOPRIL 5 MG TAB PO SCH (10:04)
[2016-10-07] MEDS: ASCORBIC ACID 500 MG TAB PO SCH ×2 (10:04→21:41)
[2016-10-07] MEDS: GEMFIBROZIL 600 MG TAB PO SCH ×2 (10:04→21:41)
[2016-10-07] MEDS: FAMOTIDINE 20 MG TAB PO SCH (10:04)
[2016-10-07] MEDS: CHOLECALCIFEROL (VITD3) 1,000 UNIT TAB PO SCH (10:05)
[2016-10-07] MEDS: MORPHINE SULF INJ 2 MG/ML SYRINGE 1ML IV PRN (11:36)
[2016-10-07] MEDS ORDERED: cefTRIAXone 1GM/50ML D5W 50 ML IV ONE (14:30)
[2016-10-07] MEDS ORDERED: WARFARIN SODIUM 5 MG TAB PO ONE (17:00)
[2016-10-07] MEDS: DONEPEZIL HYDROCHLORIDE 5 MG TAB PO SCH (21:41)
[2016-10-07] MEDS: DOCUSATE SOD 100 MG CAP PO PRN (23:40)
[2016-10-08 05:00] VITALS: BP 140/56
[2016-10-08 05:29] LABS: Basophils # (auto) 0 uL; Basophils % (auto) 0.4 % (0.0-2.0); CONDITION Y; Eosinophils # (auto) 0.3 uL; Eosinophils % (auto) 4.7 % (0.0-7.0); Hematocrit 31.6 % (36.0-46.0); Hemoglobin 10.4 g/dL (12.2-16.2); Lymphocytes # (auto) 1.1 uL; Lymphocytes % (auto) 15.3 % (10.0-50.0); Mean Corpuscular Hemoglobin 32.7 pg (28.0-32.0); Mean Corpuscular Hgb Conc. 32.9 g/dL (32.0-36.0); Mean Corpuscular Volume 99.3 fL (80.0-100.0); Mean Platelet Volume 10.5 fL (7.4-10.4); Monocytes # (auto) 1.1 uL; Monocytes % (auto) 15.1 % (0.0-12.0); Neutrophils # (auto) 4.5 uL; Neutrophils % (auto) 64.5 % (37.0-80.0); Platelet Count (auto) 222 10^3/uL (140-450); Red Cell Distribution Width 15.7 % (11.6-16.0); SUSPECT SEE PRINTOUT
[2016-10-08 05:50] LABS: BUN/Creatinine Ratio 27.6; Calcium 8.6 mg/dL (8.5-10.1); Potassium 4.3 mmol/L (3.5-5.1)
[2016-10-08 05:57] LABS: INR 1.46 (0.9-1.15); Partial Thromboplastin Time 33.4 sec (22.64-33.71)
[2016-10-08] MEDS: SODIUM CHLOR 0.9% PF (SALINE LOCK) 10ML VIAL IV SCH ×3 (06:00→22:21)
[2016-10-08 07:56] VITALS: BP 141/63
[2016-10-08] MEDS: CITALOPRAM HYDROBR 20 MG TAB PO SCH (09:15)
[2016-10-08] MEDS: ASCORBIC ACID 500 MG TAB PO SCH ×2 (09:15→22:22)
[2016-10-08] MEDS: GEMFIBROZIL 600 MG TAB PO SCH ×2 (09:15→22:22)
[2016-10-08] MEDS: ZINC SULFATE 220 MG CAP PO SCH (09:15)
[2016-10-08] MEDS: MULTIPLE VITAMIN TAB PO SCH (09:15)
[2016-10-08] MEDS: FAMOTIDINE 20 MG TAB PO SCH (09:15)
[2016-10-08] MEDS: CHOLECALCIFEROL (VITD3) 1,000 UNIT TAB PO SCH (09:15)
[2016-10-08] MEDS: LISINOPRIL 5 MG TAB PO SCH (09:16)
[2016-10-08] MEDS: BOOST PLUS 8 ounce PO SCH ×3 (09:16→18:20)
[2016-10-08] MEDS: cefTRIAXone 1GM/50ML D5W 50 ML IV SCH (09:16)
[2016-10-08] MEDS: HYDROcodone-ACET 5/325MG TAB PO PRN ×2 (10:45→17:08)
[2016-10-08 11:56] VITALS: BP 98/62
[2016-10-08 17:00] VITALS: BP 124/50
[2016-10-08] MEDS ORDERED: WARFARIN SODIUM 5 MG TAB PO ONE (17:00)
[2016-10-08 20:00] VITALS: BP 112/49
[2016-10-08 22:00] VITALS: BP 112/49
[2016-10-08] MEDS: DONEPEZIL HYDROCHLORIDE 5 MG TAB PO SCH (22:22)
[2016-10-08] MEDS: DOCUSATE SOD 100 MG CAP PO PRN (22:22)
[2016-10-09 05:30] VITALS: BP 152/68
[2016-10-09 05:34] LABS: Basophils # (auto) 0 uL; Basophils % (auto) 0.3 % (0.0-2.0); CONDITION Y; Eosinophils # (auto) 0.3 uL; Eosinophils % (auto) 3.4 % (0.0-7.0); Hematocrit 31.9 % (36.0-46.0); Hemoglobin 10.5 g/dL (12.2-16.2); Lymphocytes # (auto) 1.2 uL; Lymphocytes % (auto) 14.1 % (10.0-50.0); Mean Corpuscular Hemoglobin 32.9 pg (28.0-32.0); Mean Corpuscular Hgb Conc. 32.9 g/dL (32.0-36.0); Mean Corpuscular Volume 100.1 fL (80.0-100.0); Mean Platelet Volume 9.7 fL (7.4-10.4); Monocytes # (auto) 1.2 uL; Monocytes % (auto) 13.4 % (0.0-12.0); Neutrophils # (auto) 5.9 uL; Neutrophils % (auto) 68.8 % (37.0-80.0); Platelet Count (auto) 264 10^3/uL (140-450); Red Cell Distribution Width 15.6 % (11.6-16.0); White Blood Cell 8.6 10^3/uL (4.4-10.8)
[2016-10-09 05:50] LABS: INR 1.72 (0.9-1.15); Prothrombin Time 18.8 sec (9.37-12.3)
[2016-10-09 05:56] LABS: BUN/Creatinine Ratio 31.2; Potassium 4.4 mmol/L (3.5-5.1)
[2016-10-09] MEDS: SODIUM CHLOR 0.9% PF (SALINE LOCK) 10ML VIAL IV SCH ×2 (06:32→14:00)
[2016-10-09] MEDS: ONDANSETRON HCL 4 MG/2 ML VIAL IV PRN (06:32)
[2016-10-09] MEDS: HYDROcodone-ACET 5/325MG TAB PO PRN ×3 (06:33→18:04)
[2016-10-09] MEDS: BOOST PLUS 8 ounce PO SCH ×2 (08:00→12:29)
[2016-10-09 09:00] VITALS: BP 136/58
[2016-10-09] MEDS: cefTRIAXone 1GM/50ML D5W 50 ML IV SCH (09:04)
[2016-10-09] MEDS: ZINC SULFATE 220 MG CAP PO SCH (09:04)
[2016-10-09] MEDS: CHOLECALCIFEROL (VITD3) 1,000 UNIT TAB PO SCH (09:05)
[2016-10-09] MEDS: CITALOPRAM HYDROBR 20 MG TAB PO SCH (09:05)
[2016-10-09] MEDS: GEMFIBROZIL 600 MG TAB PO SCH (09:05)
[2016-10-09] MEDS: ASCORBIC ACID 500 MG TAB PO SCH (09:05)
[2016-10-09] MEDS: MULTIPLE VITAMIN TAB PO SCH (09:05)
[2016-10-09] MEDS: FAMOTIDINE 20 MG TAB PO SCH (09:05)
[2016-10-09] MEDS: LISINOPRIL 5 MG TAB PO SCH (09:06)
[2016-10-09 13:00] VITALS: BP 117/51
[2016-10-09 14:03] VITALS: BP 117/51
[2016-10-09 16:51] VITALS: BP 143/62
[2016-10-09] MEDS ORDERED: WARFARIN SODIUM 5 MG TAB PO ONE (17:00)
== END 2016-10-09 18:30 | disposition home or self-care (01) | DRG 470 ==
LOC: EDBD 14:47 → ER 14:49 → TELE 14:50 → WEST WING 20:18 → TELE-WESTW 20:25 → WEST WING 10-02 05:34
PROVIDERS: ADMIT Internal Medicine; ATTEND Family Medicine
PROC: 0SRS01Z Replacement of Left Hip Joint, Femoral Surface with Metal Synthetic Substitute, Open Approach (ICD-10-PCS; principal; 2016-10-04 10:18)
DX: S72.012A Unspecified intracapsular fracture of left femur, initial encounter for closed fracture (principal); E44.0 Moderate protein-calorie malnutrition; D68.32 Hemorrhagic disorder due to extrinsic circulating anticoagulants; F03.90 Unspecified dementia, unspecified severity, without behavioral disturbance, psychotic disturbance, mood disturbance, and anxiety; I50.9 Heart failure, unspecified; I13.0 Hypertensive heart and chronic kidney disease with heart failure and stage 1 through stage 4 chronic kidney disease, or unspecified chronic kidney disease; N18.3 Chronic kidney disease, stage 3 (moderate); N39.0 Urinary tract infection, site not specified; B96.20 Unspecified Escherichia coli [E. coli] as the cause of diseases classified elsewhere; J44.9 Chronic obstructive pulmonary disease, unspecified; W01.0XXA Fall on same level from slipping, tripping and stumbling without subsequent striking against object, initial encounter; D63.8 Anemia in other chronic diseases classified elsewhere; E78.5 Hyperlipidemia, unspecified; T45.515A Adverse effect of anticoagulants, initial encounter; Z79.01 Long term (current) use of anticoagulants; Z83.3 Family history of diabetes mellitus; Z85.3 Personal history of malignant neoplasm of breast; Z86.711 Personal history of pulmonary embolism; Z87.440 Personal history of urinary (tract) infections; Z86.718 Personal history of other venous thrombosis and embolism; Z90.11 Acquired absence of right breast and nipple; Z90.710 Acquired absence of both cervix and uterus; Y93.89 Activity, other specified; Y92.89 Other specified places as the place of occurrence of the external cause; Z90.49 Acquired absence of other specified parts of digestive tract; Z88.0 Allergy status to penicillin; Z88.2 Allergy status to sulfonamides; Z88.6 Allergy status to analgesic agent; Z88.5 Allergy status to narcotic agent; Z88.7 Allergy status to serum and vaccine; Z68.20 Body mass index [BMI] 20.0-20.9, adult
CPT/HCPCS: 36415; 70450; 71010; 73502; 80048; 80053; 81001; 84484; 85025; 85610; 85730; 86850; 86900; 86901; 87086; 87088; 87186; 93005; 93306; 96361; 96372; 96374; 96375; 97110; 97116; 97163; 97530; 99291; A4565; J0330; J0690; J0696; J2001; J2250; J2405; J2704; J3430; J3490

== ENCOUNTER → 2017-02-19 | Outpatient (CLI) | payer OTHER ==
[~2017-02-19] MED LIST changes: -ALPR0.5T PO; -DONE5TAB28 PO; -ESCI10TA53 PO; +ESCI5TAB14 PO; -GEMF600T3 PO; +LISI-275 PO; -LISI2.5T47 PO; -WARF2.5T PO; +WARF4TAB33
[2017-02-19 09:13] LABS: Basophils # (auto) 0 uL; Basophils % (auto) 0.6 % (0.0-2.0); Eosinophils # (auto) 0.1 uL; Eosinophils % (auto) 2.2 % (0.0-7.0); Hematocrit 37.4 % (36.0-46.0); Hemoglobin 12.4 g/dL (12.2-16.2); Lymphocytes # (auto) 1.4 uL; Lymphocytes % (auto) 25.8 % (10.0-50.0); Mean Corpuscular Hemoglobin 32.7 pg (28.0-32.0); Mean Corpuscular Hgb Conc. 33.2 g/dL (32.0-36.0); Mean Corpuscular Volume 98.5 fL (80.0-100.0); Monocytes # (auto) 0.5 uL; Monocytes % (auto) 8.3 % (0.0-12.0); Neutrophils # (auto) 3.5 uL; Neutrophils % (auto) 63.1 % (37.0-80.0); Platelet Count (auto) 181 10^3/uL (140-450); Red Cell Distribution Width 14.1 % (11.8-14.3); White Blood Cell 5.6 10^3/uL (4.4-10.8)
[2017-02-19 10:09] LABS: Albumin 3.3 g/dL (3.4-5.0); BUN/Creatinine Ratio 15.9; Bilirubin, Total 0.7 mg/dL (0.2-1.0); Calcium 8.6 mg/dL (8.5-10.1); Potassium 3.5 mmol/L (3.5-5.1); Total Protein 6.7 g/dL (6.4-8.2)
== END | disposition home or self-care (01) ==
LOC: LAB 08:54
PROVIDERS: ATTEND Internal Medicine
DX: C50.919 Malignant neoplasm of unspecified site of unspecified female breast (principal)
CPT/HCPCS: 36415; 80053; 83615; 85025